=== PATIENT | male | born 2000 | race Caucasian/White ===

== ENCOUNTER 2019-04-28 01:49 | Emergency (ER) | payer OTHER, SELFPAY ==
[~2019-04-28] VITALS: Ht 188 cm; Wt 85.0 kg
[2019-04-28] MEDS ORDERED: MORPHINE 10 MG/ML 1ML VIAL (J2270) As Ordered ONE (02:27)
[2019-04-28] MEDS ORDERED: AMPICILLIN SOD/SULBACTAM SOD 3 GM in D5W MINI-BAG PLUS 100 ML IV ONE (02:30)
[2019-04-28] MEDS ORDERED: MORPHINE 10 MG/ML 1ML VIAL (J2270) IV ONE (02:30)
[2019-04-28 02:37] LABS: BASO # 0.1 10^3/uL (0.0-0.2); BASO % 0.5 % (0.0-1.0); EOS % 0.1 % (0.0-3.0); HEMATOCRIT 41.3 % (42.0-52.0); HEMOGLOBIN 13.9 g/dl (13.5-17.5); LYMPH # 1.5 10^3/uL (1.5-6.5); LYMPH % 14.8 % (24.0-44.0); MEAN CORPUSCULAR HEMOGLOBIN 27.6 pg (27.0-33.0); MEAN CORPUSCULAR HGB CONC 33.7 g/dl (32.0-36.5); MEAN CORPUSCULAR VOLUME 81.9 fl (80.0-96.0); MONO # 0.7 10^3/uL (0.0-0.8); MONO % 7.4 % (0.0-5.0); NEUTROPHILS # 7.6 10^3/uL (1.8-7.7); NEUTROPHILS % 76.6 % (36.0-66.0); PLATELET COUNT, AUTOMATED 199 10^3/uL (150-450); RED BLOOD COUNT 5.04 10^6/uL (4.30-6.10); WHITE BLOOD COUNT 9.9 10^3/uL (4.0-10.0)
[2019-04-28 02:57] LABS: BLOOD UREA NITROGEN 14 MG/DL (7-18); CALCIUM LEVEL 8.6 MG/DL (8.5-10.1); CARBON DIOXIDE LEVEL 25 MEQ/L (21-32); CHLORIDE LEVEL 108 MEQ/L (98-107); CREATININE FOR GFR 1.07 MG/DL (0.70-1.30); GLOMERULAR FILTRATION RATE > 60.0 (>60); GLUCOSE, FASTING 125 MG/DL (70-100); POTASSIUM SERUM 3.5 MEQ/L (3.5-5.1); SODIUM LEVEL 144 MEQ/L (136-145)
[2019-04-28 04:30] VITALS: BP 100/58
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
[2019-04-28] MEDS ORDERED: D5W/LR 1,000 ML IV ONE (05:15)
== END 2019-04-28 06:01 | disposition short-term general hospital (02) ==
LOC: M ED 01:49
DX: S02.66XB Fracture of symphysis of mandible, initial encounter for open fracture (principal); S02.642B Fracture of ramus of left mandible, initial encounter for open fracture; S02.632B Fracture of coronoid process of left mandible, initial encounter for open fracture; K08.419 Partial loss of teeth due to trauma, unspecified class; Z72.89 Other problems related to lifestyle; Y04.8XXA Assault by other bodily force, initial encounter; Y92.89 Other specified places as the place of occurrence of the external cause
CPT/HCPCS: 70450; 70486; 72125; 80048; 85025; 96374; 96375; 99284; J2270

== ENCOUNTER 2019-12-14 21:44 | Inpatient (IN) | payer OTHER, SELFPAY ==
[~2019-12-14] VITALS: Ht 188 cm; Wt 79.1 kg
[2019-12-14 23:13] LABS: HEMATOCRIT 44.6 % (42.0-52.0); HEMOGLOBIN 14.7 g/dl (13.5-17.5); MEAN CORPUSCULAR HEMOGLOBIN 27.9 pg (27.0-33.0); MEAN CORPUSCULAR VOLUME 84.8 fl (80.0-96.0); PLATELET COUNT, AUTOMATED 188 10^3/uL (150-450); RED BLOOD COUNT 5.26 10^6/uL (4.30-6.10); WHITE BLOOD COUNT 8.2 10^3/uL (4.0-10.0)
[2019-12-14 23:36] LABS: AMPHETAMINES LEVEL URINE NEGATIVE (NEGATIVE); BARBITURATES URINE NEGATIVE (NEGATIVE); BENZODIAZEPINES URINE NEGATIVE (NEGATIVE); CANNABINOIDS URINE NEGATIVE (NEGATIVE); COCAINE METABOLITE URINE NEGATIVE (NEGATIVE); METHADONE URINE NEGATIVE (NEGATIVE); OPIATES URINE NEGATIVE (NEGATIVE); PHENCYCLIDINE URINE NEGATIVE (NEGATIVE)
[2019-12-15 00:02] LABS: ACETAMINOPHEN LEVEL < 2.0 UG/ML (10.0-30.0); ALBUMIN 4.6 GM/DL (3.2-5.2); ALT/SGPT 16 U/L (12-78); BILIRUBIN,DIRECT 0.1 MG/DL (0.0-0.2); BILIRUBIN,TOTAL 0.4 MG/DL (0.2-1.0); BLOOD UREA NITROGEN 19 MG/DL (7-18); CALCIUM LEVEL 9.3 MG/DL (8.5-10.1); CARBON DIOXIDE LEVEL 29 MEQ/L (21-32); CHLORIDE LEVEL 103 MEQ/L (98-107); CREATININE FOR GFR 1.08 MG/DL (0.70-1.30); ETHYL ALCOHOL (ETHANOL) < 0.003 % (0.000-0.010); GLOMERULAR FILTRATION RATE > 60.0 (>60); GLUCOSE, FASTING 89 MG/DL (70-100); POTASSIUM SERUM 3.6 MEQ/L (3.5-5.1); SALICYLATE LEVEL < 1.7 MG/DL (5.0-30.0); SODIUM LEVEL 139 MEQ/L (136-145); TOTAL PROTEIN 7.9 GM/DL (6.4-8.2)
[2019-12-15] MEDS ORDERED: ACETAMINOPHEN TAB 650MG DOSE (2X325MG) PO PRN (00:45)
[2019-12-15] MEDS ORDERED: MAALOX 30 ML SUSP *UDC PO PRN (00:45)
[2019-12-15] MEDS ORDERED: MOM 30ML SUSPENSION UDC PO PRN (00:45)
[2019-12-15 01:42] VITALS: BP 134/78
[2019-12-15] MEDS: traZODone 50 MG TAB PO PRN ×2 (01:49→20:11)
[2019-12-15] MEDS: LORazepam 1 MG TAB PO PRN ×2 (01:49→09:03)
[2019-12-15 06:34] VITALS: BP 144/78
--- NOTE | 2019-12-15 16:01 | HPEPDOC ---
General Date of Admission Dec 15, 2019 at 00:40 Date of Service: Dec 15, 2019 Chief Complaint The patient is a 19-year-old male admitted with a reason for visit of Unspecified Depressive Disorder. 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 I am seeing the patient for medical history and physical. Complains of feeling tired and non interest in things. Home Medications No Active Prescriptions or Reported Meds Allergies Coded Allergies: No Known Allergies (Unverified , 04/28/19) Past Medical History Medical History depression Mandible fracture Surgical History left thumb surgery tonsillectomy Family History Significant Family History: No pertinent family hx discussed with the patient Social History * Smoker: current smoker Alcohol: occationally Drugs: denies A-FIB/CHADSVASC A-FIB History Current/History of A-Fib/PAF?: No Review of Systems Constitutional: Denies: Chills, Fever, Night Sweats Eyes: Denies: Pain, Vision change ENT: Denies: Head Aches, Ear Pain, Dysphagia Skin: Denies: Rash, Lesions, Breakdown Pulmonary: Denies: Dyspnea, Cough Cardiovascular: Denies: Chest Pain, Palpitations, Orthopnea, Paroxysmal Noc. Dyspnea, Lt Headedness Gastrointestinal: Denies: Nausea, Vomiting, Abdominal Pain, Diarrhea Genitourinary: Denies: Dysuria, Frequency, Incontinence, Retention Hematologic: Denies: Bruising, Bleeding Excessively Musculoskeletal: Denies: Neck Pain, Back Pain, Joint Pain, Muscle Pain, Spasms Neurological: Denies: Weakness, Numbness, Change in speech, Confusion Physical Examination General Exam: Positive: Alert, Cooperative, No Acute Distress Eye Exam: Positive: PERRLA, Conjunctiva & lids normal, EOMI; Negative: Sclera icteric ENT Exam: Positive: Atraumatic, Mucous membr. moist/pink, Pharynx Normal Neck Exam: Positive: Supple; Negative: JVD, thyromegaly Chest Exam: Positive: Clear to auscultation, Normal air movement Heart Exam: Positive: Rate Normal, Regular Rhythm, Normal S1, Normal S2; Negative: Murmurs, Rubs Abdomen Exam: Positive: Normal bowel sounds, Soft; Negative: Tenderness, Hepatospenomegaly Extremity Exam: Positive: Normal pulses; Negative: Clubbing, Cyanosis, Edema Skin Exam: Positive: Nl turgor and temperature; Negative: Breakdown, Lesion Neuro Exam: Positive: Normal Gait, Normal Speech, Cranial Nerves 3-12 NL, Reflexes 2+ Vital Signs Vital Signs Date Time Temp Pulse Resp B/P (MAP) Pulse Ox O2 Delivery O2 Flow Rate FiO2 12/15/19 06:34 98.9 87 16 144/78 (100) 12/15/19 01:42 97 Room Air Laboratory Data Labs 24H Laboratory Tests 2 12/14/19 22:57: Urine Opiates Screen NEGATIVE, Urine Methadone Screen NEGATIVE, Urine Barbiturates Screen NEGATIVE, Urine Phencyclidine Screen NEGATIVE, Urine Amphetamines Screen NEGATIVE, Urine Benzodiazepines Screen NEGATIVE, Urine Cocaine Metabolite Screen NEGATIVE, Urine Cannabinoids Screen NEGATIVE 12/14/19 23:03: Nucleated Red Blood Cells % (auto) 0.0, Anion Gap 7L, Glomerular Filtration Rate > 60.0, Calcium Level 9.3, Total Bilirubin 0.4, Direct Bilirubin 0.1, Aspartate Amino Transf (AST/SGOT) 18, Alanine Aminotransferase (ALT/SGPT) 16, Alkaline Phosphatase 99, Total Protein 7.9, Albumin 4.6, Albumin/Globulin Ratio 1.39, Thyroid Stimulating Hormone (TSH) 5.540H, Salicylates Level < 1.7L, Acet aminophen Level < 2.0L, Ethyl Alcohol Level < 0.003 CBC/BMP Laboratory Tests 12/14/19 23:03 Assessment/Plan 19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 I am seeing the patient for medical history and physical . Psychiatric issues as per phychiatry Elevated TSH as long as tsh remains below 10 it is subclinical hypothyroidism and does not treatment. Plan / VTE VTE Prophylaxis Ordered?: No KRIS OCHOA MD Dec 15, 2019 16:01
[2019-12-15] MEDS: NICOTINE 21MG/24HR 1 EA TRANSDERMAL TD SCH (16:06)
[2019-12-15 16:33] VITALS: BP 118/70
--- NOTE | 2019-12-15 22:15 | MHHPE ---
DATE OF ADMISSION: 12/15/2019 CHIEF COMPLAINT: Feels depressed. SUBJECTIVE: He is 19 years old. He is single. He is active duty. He has a girlfriend, who has been quite ill. The patient is established at [facility] the last couple of months or so, and is apparently treated for depression. He says that he has been depressed for a while, but is somewhat vague on this, several weeks, possibly months. Says sleep is broken, concentration is impacted. He feels more tired. He has had suicidal thoughts. Says that he has a tendency to hurt himself in order to feel pain as well. He says that it is preferable to the difficult emotions that he experiences. He says that a couple of weeks ago he had been stabbing himself with a pencil on the left arm, left hand as well. He says that he wanted to draw blood as well, and then had some remorse about it. He says his mood has worsened, particularly as his girlfriend has not been well, he says that she has an inoperable brain tumor and this was recently found out and she is due to undergo chemotherapy. He had come in as he had tried again stabbing himself, says concerned such emotions may worsen. No history consistent with hypomania nor jairo. No obsessions or compulsions. No history consistent with psychosis. No posttraumatic stress disorder (PTSD). PAST PSYCHIATRIC HISTORY: As indicated above. He is seen at [facility]. He says that he has made suicide attempts by stabbing himself, attempting to a couple of weeks ago. MEDICAL HISTORY: No acute medical problems. SUBSTANCE ABUSE HISTORY: Denies any. SOCIAL HISTORY: Family is from out of state, says had a good childhood. He is close to them. They live in [place]. He is in contact with his mother. He graduated high school. Denies any history of abuse when growing up. MENTAL STATUS EXAMINATION: Neat, cooperative, though a bit guarded. There is no agitation. No psychomotor retardation. He is coherent. Affect is restricted. He has suicidal thoughts, currently no firm plan. No homicidal ideas or intents. No evidence of any psychosis. Intellect is average. Cognition is grossly intact. Judgment and insight are fair. VITAL SIGNS: Blood pressure 118/70, pulse 95, temperature 98.6. ASSESSMENT: 1. Unspecified depressive disorder. 2. Rule out major depressive disorder. 3. Girlfriend's illness. 4. Limited social supports. He is depressed, clinically significantly so the last several weeks, possibly longer, several stressors, including his girlfriend's illness. PLAN: He is admitted to the inpatient psychiatry unit and placed on relevant precautions. We will look at obtaining collateral information. He will receive a medicine consultation if indicated. Meanwhile, after discussion of the risks, benefits, drawbacks, and alternatives, which he understands, he will be started on Prozac at 10 mg daily, to be titrated upwards as indicated. He is to be encouraged to participate in activities on the unit. He will be discharged with followup once he is stable. The assessment took 30 minutes.
[2019-12-16 06:28] VITALS: BP 115/72
[2019-12-16] MEDS: NICOTINE 21MG/24HR 1 EA TRANSDERMAL TD SCH (09:00)
[2019-12-16] MEDS: LORazepam 1 MG TAB PO PRN ×2 (09:24→17:00)
[2019-12-16] MEDS: FLUoxetine 10 MG CAP PO SCH (11:40)
[2019-12-16 16:52] VITALS: BP 119/58
[2019-12-16] MEDS: traZODone 50 MG TAB PO PRN (20:40)
[2019-12-17 06:32] VITALS: BP 127/76
[2019-12-17] MEDS: LORazepam 1 MG TAB PO PRN (08:31)
[2019-12-17] MEDS: FLUoxetine 10 MG CAP PO SCH (08:31)
--- NOTE | 2019-12-17 09:01 | MHIPNPDOC ---
[facility] Progress Note Progress Note Inpatient Progress Note Dax Pham MRN: N/A Date of : N/A Date of Service: 12/17/2019 History of Present Illness The patient a 19-year-old man with a history of some mild depression in the setting of multiple stressors, such as girlfriend who is currently fighting cancers. Presents suicidal and depressed. Interval History Psychiatric symptoms today: The patient is met with the business planner. He reports that felt the Prozac might be helpful for him, but notes too that he finds it difficult to cope with the various stressors. Affective: The patient still reports low mood, loss of interest, difficulty concentrating. Psychotic: The patient denies any . Anxiety: The patient still reports excessive worry. Misc: sleeping/eating is okay. Group Attendance: regular attendance . Medication Side effects: See ROS below Behavioral problems/significant events overnight: To none reported. Staff Report: The patient appears quite depressed by staff report, but still amenable and engaged. Review Of Systems General: Denies fever or appetite changes Cardiovascular: Denies Chest pain or palpations GI: Denies Nausea, vomiting, or bowel changes Respiratory: Denies shortness of breath or cough Neuro: Denies dizziness, tremors Derm: Denies any rashes or pruritus : Denies any dysuria or urinary problems MSK: Denies any muscle tightness or stiffness HEENT: Denies any vision changes or headaches Psychotherapy None on this visit. Vital Signs Reviewed. Mental Status Examination General: Well dressed with good hygiene Speech: Spontaneous and fluid Thought processes: Linear and logical MSK: Smooth and coordinated gait, no signs of tremors or involuntary orofacial movements Thought content: Hopelessness. Abstract reasoning, and computation: Intact Description of associations: Intact Description of abnormal or psychotic thoughts: Denies any suicidal or homicidal ideation. Denies any auditory or visual hallucinations. Does not appear to be responding to internal stimuli. Does not appear to be endorsing any bizarre or paranoid ideation. Judgment: fair Insight: fair Orientation: Alert and orientated 3 Cognition: Grossly normal Recent and remote memory: Intact Attention span and concentration: Intact Fund of knowledge: Adequate Mood: "Bad" Affect: Dysthymic with a constricted range. Diagnoses Unspecified depressive disorder. Assessment and Plan Unspecified depressive disorder: Increase Prozac to 20 mg daily. Disposition Patient will need a continued admission to treat his severe depression. He does report at times some intermittent SI, but none at this time. We will convert a voluntary at this time in order to help culture better therapeutical alignment. Time Spent 15 minutes. Tuesday Vital Signs Vital Signs Date Time Temp Pulse Resp B/P (MAP) Pulse Ox O2 Delivery O2 Flow Rate FiO2 12/17/19 06:32 98.0 80 16 127/76 (93) 12/15/19 01:42 97 Room Air Current Medications Current Medications Medications (Trade) Dose Ordered Sig/Dakota Route PRN Reason Start Time Stop Time Status Last Admin Dose Admin Acetaminophen (Tylenol Tab) 650 mg Q6HP PRN PO HEADACHE or DISCOMFORT 12/15/19 00:45 Al Hydrox/Mg Hydrox/Simethicone (Mylanta) 30 ml Q4HP PRN PO HEARTBURN/INDIGESTION 12/15/19 00:45 Fluoxetine HCl (PROzac) 10 mg DAILY PO 12/16/19 09:00 12/17/19 08:31 Home Med (Med Rec Complete!) ASDIRECTED XX 12/15/19 01:00 12/15/19 01:03 DC Lorazepam (Ativan) 1 mg Q4HP PRN PO ANXIETY/AGITATION 12/15/19 00:45 12/17/19 08:31 Magnesium Hydroxide (Milk Of Magnesia) 30 ml DAILYPRN PRN PO CONSTIPATION 12/15/19 00:45 Nicotine (Nicoderm Cq 21mg) 1 patch DAILY TD 12/15/19 09:00 12/16/19 10:56 DC 12/15/19 16:06 Trazodone HCl (Desyrel) 50 mg QHSP PRN PO INSOMNIA 12/15/19 00:45 12/16/19 20:40 Allergies Coded Allergies: No Known Allergies (Unverified , 04/28/19) ADILSON EASON DO Dec 17, 2019 09:01
[2019-12-17] MEDS ORDERED: NICOTINE POLACRILEX 2 MG GUM PO ONE (12:00)
[2019-12-17 14:00] VITALS: BP 128/58
[2019-12-17] MEDS: NICOTINE POLACRILEX 2 MG GUM PO PRN ×2 (18:10→20:46)
--- NOTE | 2019-12-17 19:20 | MHIPN ---
DATE: 12/16/2019 VITAL SIGNS: Blood pressure 115/72, pulse 84, temperature 98.5. CHIEF COMPLAINT: Says has been vomiting. SUBJECTIVE: He is seen for followup. Indicates had been doing okay until yesterday evening when he started vomiting. He says that he has thrown up on a few occasions, he is not quite sure why. He says sleep was okay though broken. He has had breakfast this morning. MENTAL STATUS EXAMINATION: He is neat. He is cooperative. Appears a bit tired. There is no agitation. No psychomotor retardation. He is coherent. Affect is restricted but reactive. Vague on suicidal thoughts at present. No homicidal ideas or intents. No evidence of any psychosis. Cognition is grossly intact. Judgment is fair, as is insight. ASSESSMENT: 1. Unspecified depressive disorder. 2. Rule out major depressive disorder. It is possible that he may have vomited because of nicotine patch. He was given a 21 mg patch on admission, apparently uses one pack of cigarettes a week. We will discontinue the patch. He will be started on Prozac today at 10 mg daily. PLAN: Given that he has vomited on a few occasions, it is possible starting the Prozac may lead to further nausea, but that will be monitored. He should be encouraged to participate in activities in the unit. He will be seen by the inpatient psychiatrist tomorrow and further recommendations will be made. We met for 15 minutes.
[2019-12-17] MEDS: traZODone 50 MG TAB PO PRN (20:46)
[2019-12-18 06:13] VITALS: BP 125/77
[2019-12-18] MEDS: LORazepam 1 MG TAB PO PRN (08:28)
[2019-12-18] MEDS: FLUoxetine 20 MG CAP PO SCH (08:28)
[2019-12-18] MEDS: NICOTINE POLACRILEX 2 MG GUM PO PRN ×3 (08:29→16:11)
--- NOTE | 2019-12-18 10:43 | MHIPNPDOC ---
[facility] Progress Note Progress Note Inpatient Progress Note Dax Pham MRN: N/A Date of : N/A Date of Service: 12/18/2019 History of Present Illness The patient a 19-year-old man with a history of some mild depression in the setting of multiple stressors, such as girlfriend who is currently fighting cancers. Presents suicidal and depressed. Interval History Psychiatric symptoms today: The patient is met with. He reports that he is still having difficulties with depression, feels that the medication is somewhat helpful but reports various stressors. Affective: The patient still reports low mood, loss of interest, difficulty concentrating. Psychotic: The patient denies any . Anxiety: The patient reports excessive worry, using quite a bit of PRN medication. Misc: sleeping/eating is okay. Group Attendance: regular attendance . Medication Side effects: See ROS below Behavioral problems/significant events overnight: None reported. Staff Report: The patient appears quite depressed by staff report, but still amenable and engaged. Review Of Systems General: Denies fever or appetite changes Cardiovascular: Denies Chest pain or palpations GI: Denies Nausea, vomiting, or bowel changes Respiratory: Denies shortness of breath or cough Neuro: Denies dizziness, tremors Derm: Denies any rashes or pruritus : Denies any dysuria or urinary problems MSK: Denies any muscle tightness or stiffness HEENT: Denies any vision changes or headaches Psychotherapy None on this visit. Vital Signs Reviewed. Mental Status Examination General: Well dressed with good hygiene Speech: Spontaneous and fluid Thought processes: Linear and logical MSK: Smooth and coordinated gait, no signs of tremors or involuntary orofacial movements Thought content: Hopelessness. Abstract reasoning, and computation: Intact Description of associations: Intact Description of abnormal or psychotic thoughts: Denies any suicidal or homicidal ideation. Denies any auditory or visual hallucinations. Does not appear to be responding to internal stimuli. Does not appear to be endorsing any bizarre or paranoid ideation. Judgment: fair Insight: fair Orientation: Alert and orientated 3 Cognition: Grossly normal Recent and remote memory: Intact Attention span and concentration: Intact Fund of knowledge: Adequate Mood: "Okay" Affect: Dysthymic with a constricted range. Diagnoses Unspecified depressive disorder. Assessment and Plan Unspecified depressive disorder: to Continue Prozac to 20 mg daily, discontinue Ativan. Disposition Patient will need a continued admission to treat his severe depression. He does report at times some intermittent SI, but none at this time. We will convert a voluntary at this time in order to help culture better therapeutical alignment. Time Spent 15 minutes. Tuesday Vital Signs Vital Signs Date Time Temp Pulse Resp B/P (MAP) Pulse Ox O2 Delivery O2 Flow Rate FiO2 12/18/19 06:13 96.9 75 16 125/77 (93) 12/15/19 01:42 97 Room Air Current Medications Current Medications Medications (Trade) Dose Ordered Sig/Dakota Route PRN Reason Start Time Stop Time Status Last Admin Dose Admin Acetaminophen (Tylenol Tab) 650 mg Q6HP PRN PO HEADACHE or DISCOMFORT 12/15/19 00:45 Al Hydrox/Mg Hydrox/Simethicone (Mylanta) 30 ml Q4HP PRN PO HEARTBURN/INDIGESTION 12/15/19 00:45 Fluoxetine HCl (PROzac) 10 mg DAILY PO 12/16/19 09:00 12/17/19 11:51 DC 12/17/19 08:31 Fluoxetine HCl (PROzac) 20 mg DAILY PO 12/18/19 09:00 12/18/19 08:28 Home Med (Med Rec Complete!) ASDIRECTED XX 12/15/19 01:00 12/15/19 01:03 DC Lorazepam (Ativan) 1 mg Q4HP PRN PO ANXIETY/AGITATION 12/15/19 00:45 12/18/19 10:38 DC 12/18/19 08:28 Magnesium Hydroxide (Milk Of Magnesia) 30 ml DAILYPRN PRN PO CONSTIPATION 12/15/19 00:45 Nicotine (Nicoderm Cq 21mg) 1 patch DAILY TD 12/15/19 09:00 12/16/19 10:56 DC 12/15/19 16:06 Nicotine (Nicorette) 4 mg Q2HP PRN PO NICOTINE WITHDRAWAL 12/17/19 12:00 12/18/19 08:29 Trazodone HCl (Desyrel) 50 mg QHSP PRN PO INSOMNIA 12/15/19 00:45 12/17/19 20:46 Allergies Coded Allergies: No Known Allergies (Unverified , 04/28/19) ADILSON EASON DO Dec 18, 2019 10:43
[2019-12-18 17:44] VITALS: BP 118/68
[2019-12-18] MEDS: RAMELTEON 8 MG TAB (ROZEREM) PO SCH (21:31)
[2019-12-18] MEDS: traZODone 50 MG TAB PO PRN (21:31)
[2019-12-18] MEDS ORDERED: hydrOXYzine 25 MG TAB PO PRN (22:15)
[2019-12-18] MEDS ORDERED: hydrOXYzine 25 MG TAB PO ONE (23:00)
[2019-12-19 06:13] VITALS: BP 117/72
[2019-12-19] MEDS: NICOTINE POLACRILEX 2 MG GUM PO PRN ×2 (09:31→16:59)
[2019-12-19] MEDS: FLUoxetine 20 MG CAP PO SCH (09:31)
--- NOTE | 2019-12-19 12:47 | MHIPNPDOC ---
[facility] Progress Note Progress Note Inpatient Progress Note Dax Pham MRN: N/A Date of : N/A Date of Service: 12/19/2019 History of Present Illness The patient a 19-year-old man with a history of some mild depression in the setting of multiple stressors, such as girlfriend who is currently fighting cancers. Presents suicidal and depressed. Interval History Psychiatric symptoms today: The patient is met with. He reports he is still having difficulties with depression, feels medication is helpful, although not entirely so. Affective: The patient still reports low mood, loss of interest, difficulty concentrating. Psychotic: The patient denies any . Anxiety: The patient reports excessive worry, using quite a bit of PRN medication. Misc: sleeping/eating is okay. Group Attendance: regular attendance . Medication Side effects: See ROS below Behavioral problems/significant events overnight: None reported. Staff Report: The patient appears quite depressed by staff report, but still amenable and engaged. Review Of Systems General: Denies fever or appetite changes Cardiovascular: Denies Chest pain or palpations GI: Denies Nausea, vomiting, or bowel changes Respiratory: Denies shortness of breath or cough Neuro: Denies dizziness, tremors Derm: Denies any rashes or pruritus : Denies any dysuria or urinary problems MSK: Denies any muscle tightness or stiffness HEENT: Denies any vision changes or headaches Psychotherapy None on this visit. Vital Signs Reviewed. Mental Status Examination General: Well dressed with good hygiene Speech: Spontaneous and fluid Thought processes: Linear and logical MSK: Smooth and coordinated gait, no signs of tremors or involuntary orofacial movements Thought content: Hopelessness. Abstract reasoning, and computation: Intact Description of associations: Intact Description of abnormal or psychotic thoughts: Denies any suicidal or homicidal ideation. Denies any auditory or visual hallucinations. Does not appear to be responding to internal stimuli. Does not appear to be endorsing any bizarre or paranoid ideation. Judgment: fair Insight: fair Orientation: Alert and orientated 3 Cognition: Grossly normal Recent and remote memory: Intact Attention span and concentration: Intact Fund of knowledge: Adequate Mood: "Okay" Affect: Dysthymic with a constricted range. Diagnoses Major depressive disorder, moderate to severe, recurrent. Assessment and Plan Major depressive disorder: Continue to increase Prozac to 30 mg daily. Add hydroxyzine for anxiety 50 mg as needed every 4 hours. Start Wellbutrin 150 mg extended release. Discussed risks, benefits, potential side effects as well as alternatives Disposition The patient will need a further inpatient admission for titration of medications as his current medication regimen is not controlling his symptoms sufficiently well, to ensure a safe and secure discharge. Time Spent 15 minutes. Tuesday Vital Signs Vital Signs Date Time Temp Pulse Resp B/P (MAP) Pulse Ox O2 Delivery O2 Flow Rate FiO2 12/19/19 06:13 96.8 78 16 117/72 (87) 12/15/19 01:42 97 Room Air Current Medications Current Medications Medications (Trade) Dose Ordered Sig/Dakota Route PRN Reason Start Time Stop Time Status Last Admin Dose Admin Acetaminophen (Tylenol Tab) 650 mg Q6HP PRN PO HEADACHE or DISCOMFORT 12/15/19 00:45 Al Hydrox/Mg Hydrox/Simethicone (Mylanta) 30 ml Q4HP PRN PO HEARTBURN/INDIGESTION 12/15/19 00:45 Fluoxetine HCl (PROzac) 10 mg DAILY PO 12/16/19 09:00 12/17/19 11:51 DC 12/17/19 08:31 Fluoxetine HCl (PROzac) 20 mg DAILY PO 12/18/19 09:00 12/19/19 09:31 Home Med (Med Rec Complete!) ASDIRECTED XX 12/15/19 01:00 12/15/19 01:03 DC Hydroxyzine HCl (Atarax) 25 mg Q6HP PRN PO ANXIETY 12/18/19 22:15 12/19/19 09:31 Lorazepam (Ativan) 1 mg Q4HP PRN PO ANXIETY/AGITATION 12/15/19 00:45 12/18/19 10:38 DC 12/18/19 08:28 Magnesium Hydroxide (Milk Of Magnesia) 30 ml DAILYPRN PRN PO CONSTIPATION 12/15/19 00:45 Nicotine (Nicoderm Cq 21mg) 1 patch DAILY TD 12/15/19 09:00 12/16/19 10:56 DC 12/15/19 16:06 Nicotine (Nicorette) 4 mg Q2HP PRN PO NICOTINE WITHDRAWAL 12/17/19 12:00 12/19/19 09:31 Ramelteon (Rozerem) 8 mg QHS PO 12/18/19 21:00 12/18/19 21:31 Trazodone HCl (Desyrel) 50 mg QHSP PRN PO INSOMNIA 12/15/19 00:45 12/18/19 21:31 Allergies Coded Allergies: No Known Allergies (Unverified , 04/28/19) ADILSON EASON DO Dec 19, 2019 12:47
[2019-12-19 16:00] VITALS: BP 98/55
[2019-12-19] MEDS: hydrOXYzine 25 MG TAB PO PRN (20:28)
[2019-12-19] MEDS: RAMELTEON 8 MG TAB (ROZEREM) PO SCH (20:28)
[2019-12-19] MEDS: traZODone 50 MG TAB PO PRN (20:29)
[2019-12-20 06:27] VITALS: BP 111/60
[2019-12-20] MEDS: FLUoxetine 10 MG CAP PO SCH (08:49)
[2019-12-20] MEDS: hydrOXYzine 25 MG TAB PO PRN ×2 (08:49→19:12)
[2019-12-20] MEDS: NICOTINE POLACRILEX 2 MG GUM PO PRN ×3 (08:51→19:13)
[2019-12-20] MEDS ORDERED: buPROPion **XL** TABLET 150MG (WELLBUTRIN XL) PO SCH (09:00)
--- NOTE | 2019-12-20 10:43 | MHIPNPDOC ---
[facility] Progress Note Progress Note Inpatient Progress Note Dax Pham MRN: N/A Date of : N/A Date of Service: 12/20/2019 History of Present Illness The patient a 19-year-old man with a history of some mild depression in the setting of multiple stressors, such as girlfriend who is currently fighting cancers. Presents suicidal and depressed. Interval History Psychiatric symptoms today: The patient met with. He had been initially napping but reports that he is feeling somewhat better. He feels he had met another patient on the unit that was quite supportive and he is feeling ready for di scharge to home, has plans for the future. Affective: The patient reports improvement in his mood. He has no loss of interest today. His concentration problems have resolved. Psychotic: The patient denies any . Anxiety: The patient ports the hydroxyzine is quite helpful and his anxiety feels much better managed. Misc: sleeping/eating is okay. Group Attendance: regular attendance . Medication Side effects: See ROS below Behavioral problems/significant events overnight: None reported. Staff Report: The patient appears quite depressed by staff report, but still amenable and engaged. Review Of Systems General: Denies fever or appetite changes Cardiovascular: Denies Chest pain or palpations GI: Denies Nausea, vomiting, or bowel changes Respiratory: Denies shortness of breath or cough Neuro: Denies dizziness, tremors Derm: Denies any rashes or pruritus : Denies any dysuria or urinary problems MSK: Denies any muscle tightness or stiffness HEENT: Denies any vision changes or headaches Psychotherapy None on this visit. Vital Signs Reviewed. Mental Status Examination General: Well dressed with good hygiene Speech: Spontaneous and fluid Thought processes: Linear and logical MSK: Smooth and coordinated gait, no signs of tremors or involuntary orofacial movements Thought content: Future orientated Abstract reasoning, and computation: Intact Description of associations: Intact Description of abnormal or psychotic thoughts: Denies any suicidal or homicidal ideation. Denies any auditory or visual hallucinations. Does not appear to be responding to internal stimuli. Does not appear to be endorsing any bizarre or paranoid ideation. Judgment: fair Insight: fair Orientation: Alert and orientated 3 Cognition: Grossly normal Recent and remote memory: Intact Attention span and concentration: Intact Fund of knowledge: Adequate Mood: "okay" Affect: Euthymic with a full range Diagnoses Major depressive disorder, moderate to severe, recurrent. Assessment and Plan Major depressive disorder: Continue Prozac 30 mg daily. Increase Wellbutrin to 300 mg extended release tomorrow. Continue hydroxyzine. Disposition Discharge tomorrow. Time Spent 15 minutes. Vital Signs Vital Signs Date Time Temp Pulse Resp B/P (MAP) Pulse Ox O2 Delivery O2 Flow Rate FiO2 12/20/19 06:27 97.4 72 18 111/60 (77) 12/15/19 01:42 97 Room Air Current Medications Current Medications Medications (Trade) Dose Ordered Sig/Dakota Route PRN Reason Start Time Stop Time Status Last Admin Dose Admin Acetaminophen (Tylenol Tab) 650 mg Q6HP PRN PO HEADACHE or DISCOMFORT 12/15/19 00:45 Al Hydrox/Mg Hydrox/Simethicone (Mylanta) 30 ml Q4HP PRN PO HEARTBURN/INDIGESTION 12/15/19 00:45 Bupropion HCl (Wellbutrin Xl) 150 mg DAILY PO 12/20/19 09:00 12/20/19 08:49 Fluoxetine HCl (PROzac) 10 mg DAILY PO 12/16/19 09:00 12/17/19 11:51 DC 12/17/19 08:31 Fluoxetine HCl (PROzac) 20 mg DAILY PO 12/18/19 09:00 12/19/19 16:33 DC 12/19/19 09:31 Fluoxetine HCl (PROzac) 30 mg DAILY PO 12/20/19 09:00 12/20/19 08:49 Home Med (Med Rec Complete!) ASDIRECTED XX 12/15/19 01:00 12/15/19 01:03 DC Hydroxyzine HCl (Atarax) 25 mg Q4HP PRN PO ANXIETY/AGITATION 12/19/19 16:45 12/20/19 08:49 Hydroxyzine HCl (Atarax) 25 mg Q6HP PRN PO ANXIETY 12/18/19 22:15 12/19/19 16:37 DC 12/19/19 09:31 Lorazepam (Ativan) 1 mg Q4HP PRN PO ANXIETY/AGITATION 12/15/19 00:45 12/18/19 10:38 DC 12/18/19 08:28 Magnesium Hydroxide (Milk Of Magnesia) 30 ml DAILYPRN PRN PO CONSTIPATION 12/15/19 00:45 Nicotine (Nicoderm Cq 21mg) 1 patch DAILY TD 12/15/19 09:00 12/16/19 10:56 DC 12/15/19 16:06 Nicotine (Nicorette) 4 mg Q2HP PRN PO NICOTINE WITHDRAWAL 12/17/19 12:00 12/20/19 08:51 Ramelteon (Rozerem) 8 mg QHS PO 12/18/19 21:00 12/19/19 20:28 Trazodone HCl (Desyrel) 50 mg QHSP PRN PO INSOMNIA 12/15/19 00:45 12/19/19 20:29 Allergies Coded Allergies: No Known Allergies (Unverified , 04/28/19) ADILSON EASON DO Dec 20, 2019 10:43
[2019-12-20 15:43] VITALS: BP 108/52
[2019-12-20] MEDS: RAMELTEON 8 MG TAB (ROZEREM) PO SCH (20:29)
[2019-12-20] MEDS: traZODone 50 MG TAB PO PRN (20:29)
[2019-12-21 06:08] VITALS: BP 141/87
[2019-12-21] MEDS: hydrOXYzine 25 MG TAB PO PRN ×2 (07:57→12:19)
[2019-12-21] MEDS: FLUoxetine 10 MG CAP PO SCH (07:57)
[2019-12-21] MEDS: NICOTINE POLACRILEX 2 MG GUM PO PRN ×2 (07:59→11:02)
[2019-12-21] MEDS ORDERED: buPROPion **XL** TABLET 150MG (WELLBUTRIN XL) PO SCH (09:00)
[2019-12-21] MEDS ORDERED: NICO2GUM PO (10:06)
[2019-12-21] MEDS ORDERED: FLUO10CA15 PO (10:06)
[2019-12-21] MEDS ORDERED: BUPR150T3 PO (10:06)
--- NOTE | 2019-12-21 10:09 | MHDSPDOC ---
[facility] Discharge Summary Discharge Summary DATE OF ADMISSION: Dec 15, 2019 at 00:40 DATE OF DISCHARGE: 12/21/19 Discharge Dax Pham MRN: N/A Date of : N/A Date of Service: 12/21/2019 Diagnoses Major depressive disorder, moderate to severe, recurrent. History of Present Illness The patient a 19-year-old man with a history of some mild depression in the setting of multiple stressors, such as girlfriend who is currently fighting cancers. Presents suicidal and depressed. Consultants Involved Hospitalist/PCP screening Treatment and Progress On The Unit Patient was admitted to inpatient mental health unit started on Prozac increased to a total of 30 mg daily augmented with Wellbutrin 150 mg daily. The patient did well on our unit. He attended all groups well, he had no behavioral problems. He was given hydroxyzine instead of Ativan for anxiety, which he did well. He worked too many of his emotional difficulties. He had no issues was changed to voluntary shortly after he presented to the unit. His suicidality resolved at the first several days of admission, subsequently the patient improved and then requested discharge. Discharge Assessment The patient 19-year-old with a history of depression in the setting of psy chosocial stressors, improves well with a combination of Prozac and Wellbutrin and a small dose of hydroxyzine for anxiety. Patient does well and on the day of discharge have been denying any suicidal and homicidal ideation for several days. Had a normal mental status exam, was on a voluntary admission and had good insight/judgment into the situation and thus my clinical judgment he did not meet involuntary criteria for extended admission. He declines voluntary extension at this time and will be discharged in good viktoria. Mental Status Examination General: Well dressed with good hygiene Speech: Spontaneous and fluid Thought processes: Linear and logical MSK: Smooth and coordinated gait, no signs of tremors or involuntary orofacial movements Thought content: Future orientated Abstract reasoning, and computation: Intact Description of associations: Intact Description of abnormal or psychotic thoughts: Denies any suicidal or homicidal ideation. Denies any auditory or visual hallucinations. Does not appear to be responding to internal stimuli. Does not appear to be endorsing any bizarre or paranoid ideation. Judgment: fair Insight: fair Orientation: Alert and orientated 3 Cognition: Grossly normal Recent and remote memory: Intact Attention span and concentration: Intact Fund of knowledge: Adequate Mood: "okay" Affect: Euthymic with a full range Follow Up The social work team worked during the predischarge meeting in order to evaluate for further issues of lethality address them fully before discharge. They worked on safety planning with the patient's family members in order to ensure that the patient will have a safe and effective discharge. Time Spent The amount of time spent in the coordination of care for this patient was approximately 40 minutes. Tuesday Vital Signs/I&Os Vital Signs Date Time Temp Pulse Resp B/P (MAP) Pulse Ox O2 Delivery O2 Flow Rate FiO2 12/21/19 06:08 97.5 59 16 141/87 (105) 12/15/19 01:42 97 Room Air Medications Scheduled Bupropion Hcl (Bupropion Xl) 150 Mg Tab.er.24h, 300 MG PO DAILY for mood for 7 Days, #7 Fluoxetine Hcl (Fluoxetine HCl) 10 Mg Capsule, 30 MG PO DAILY for mood for 7 Days, #21 Scheduled PRN Hydroxyzine HCl (Hydroxyzine HCl) 25 Mg Tablet, 25 MG PO Q4HP PRN for ANXIETY/AGITATION for 7 Days, #7 Nicotine Polacrilex (Nicotine Gum) 2 Mg Gum, 4 MG PO Q2HP PRN for NICOTINE WITHDRAWAL for 30 Days, #30 Allergies Coded Allergies: No Known Allergies (Unverified , 04/28/19) ADILSON EASON DO Dec 21, 2019 10:09
[2019-12-21] MEDS ORDERED: HYDR-3363 PO (11:01)
== END 2019-12-21 13:00 | disposition home or self-care (01) | DRG 885 ==
LOC: M ED 21:44 → M ED INP 12-15 00:40 → M PSY 12-15 01:10
PROVIDERS: ADMIT Psychiatry & Neurology Psychiatry; ATTEND Psychiatry & Neurology Addiction Medicine
DX: F33.2 Major depressive disorder, recurrent severe without psychotic features (principal); R45.851 Suicidal ideations; Z63.79 Other stressful life events affecting family and household; F17.210 Nicotine dependence, cigarettes, uncomplicated; E02 Subclinical iodine-deficiency hypothyroidism

== ENCOUNTER 2020-01-01 06:06 | Inpatient (IN) | payer OTHER ==
[~2020-01-01] VITALS: Ht 188 cm; Wt 85.0 kg
[~2020-01-01 06:06] MED LIST: BUPR150T3 PO; FLUO10CA15 PO; HYDR-3363 PO; NICO2GUM PO
[2020-01-01] MEDS ORDERED: HYDR-3363 PO (06:45)
[2020-01-01] MEDS ORDERED: WELLTAB38 PO (06:45)
[2020-01-01] MEDS ORDERED: FLUO10CA15 PO (06:45)
[2020-01-01] MEDS ORDERED: LIDOCAINE 1% MDV 20ML VIAL SC ONE (06:45)
[2020-01-01] MEDS ORDERED: NICO2GUM MT (06:45)
[2020-01-01 06:52] LABS: HEMATOCRIT 47.8 % (42.0-52.0); HEMOGLOBIN 15.9 g/dl (13.5-17.5); MEAN CORPUSCULAR HEMOGLOBIN 28.1 pg (27.0-33.0); MEAN CORPUSCULAR HGB CONC 33.3 g/dl (32.0-36.5); MEAN CORPUSCULAR VOLUME 84.5 fl (80.0-96.0); PLATELET COUNT, AUTOMATED 233 10^3/uL (150-450); RED BLOOD COUNT 5.66 10^6/uL (4.30-6.10); WHITE BLOOD COUNT 9.1 10^3/uL (4.0-10.0)
[2020-01-01 07:24] LABS: ALBUMIN 4.4 GM/DL (3.2-5.2); ALT/SGPT 17 U/L (12-78); BILIRUBIN,DIRECT 0.1 MG/DL (0.0-0.2); BILIRUBIN,TOTAL 0.3 MG/DL (0.2-1.0); BLOOD UREA NITROGEN 11 MG/DL (7-18); CALCIUM LEVEL 9.4 MG/DL (8.5-10.1); CARBON DIOXIDE LEVEL 30 MEQ/L (21-32); CHLORIDE LEVEL 106 MEQ/L (98-107); CREATININE FOR GFR 1.16 MG/DL (0.70-1.30); GLOMERULAR FILTRATION RATE > 60.0 (>60); GLUCOSE, FASTING 85 MG/DL (70-100); POTASSIUM SERUM 4.4 MEQ/L (3.5-5.1); SALICYLATE LEVEL < 1.7 MG/DL (5.0-30.0); SODIUM LEVEL 142 MEQ/L (136-145); TOTAL PROTEIN 7.7 GM/DL (6.4-8.2)
[2020-01-01 07:25] LABS: ACETAMINOPHEN LEVEL < 2.0 UG/ML (10.0-30.0); ETHYL ALCOHOL (ETHANOL) < 0.003 % (0.000-0.010)
[2020-01-01 07:26] LABS: AMPHETAMINES LEVEL URINE NEGATIVE (NEGATIVE); BARBITURATES URINE NEGATIVE (NEGATIVE); BENZODIAZEPINES URINE NEGATIVE (NEGATIVE); CANNABINOIDS URINE NEGATIVE (NEGATIVE); COCAINE METABOLITE URINE NEGATIVE (NEGATIVE); METHADONE URINE NEGATIVE (NEGATIVE); OPIATES URINE NEGATIVE (NEGATIVE); PHENCYCLIDINE URINE NEGATIVE (NEGATIVE)
[2020-01-01] MEDS ORDERED: CEPHALEXIN 500 MG CAP PO ONE (09:15)
[2020-01-01] MEDS ORDERED: IBUPROFEN 400 MG TAB PO PRN (12:30)
[2020-01-01] MEDS ORDERED: MAALOX 30 ML SUSP *UDC PO PRN (12:30)
[2020-01-01] MEDS ORDERED: diphenhydrAMINE 25 MG CAP PO PRN (12:30)
[2020-01-01] MEDS ORDERED: ACETAMINOPHEN TAB 650MG DOSE (2X325MG) PO PRN (12:30)
[2020-01-01] MEDS ORDERED: MOM 30ML SUSPENSION UDC PO PRN (12:30)
[2020-01-01 13:33] VITALS: BP 133/84
[2020-01-01] MEDS: OLANZapine ORAL DISINTEGRATING TAB 5MG PO PRN (14:25)
[2020-01-01] MEDS: NICOTINE POLACRILEX 2 MG GUM MT PRN (14:27)
[2020-01-01 15:40] VITALS: BP 147/74
[2020-01-01] MEDS: CEPHALEXIN 500 MG CAP PO SCH ×2 (16:00→21:20)
[2020-01-02 06:04] VITALS: BP 128/63
[2020-01-02] MEDS: CEPHALEXIN 500 MG CAP PO SCH ×3 (08:48→20:10)
[2020-01-02] MEDS ORDERED: FLUoxetine 10 MG CAP PO SCH (09:00)
[2020-01-02] MEDS ORDERED: buPROPion **XL** TABLET 150MG (WELLBUTRIN XL) PO SCH (09:00)
--- NOTE | 2020-01-02 11:17 | HPEPDOC ---
General Date of Admission Jan 01, 2020 at 12:29 Date of Service: Jan 02, 2020 Chief Complaint The patient is a 19-year-old male admitted with a reason for visit of Mdd Severe. Source: Patient Exam Limitations: No limitations Timing/Duration: Other (. 1 day) Severity: Other (not applicable) Associated Symptoms: Other (. 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 Left forearm with a knife because he wanted to feel something. Patient was thinking about suicide last night, so he was brought to [facility] for inpatient mental health unit admission. Patient denies any suicidal thought or any medical complaints including chest pain, shortness of breath, nausea, vomiting, diarrhea or abdominal pain Home Medications Scheduled Bupropion HCl (Wellbutrin Xl) 150 Mg Tab.er.24h, 300 MG PO DAILY, (Reported) Fluoxetine Hcl (Fluoxetine HCl) 10 Mg Capsule, 30 MG PO DAILY, (Reported) Scheduled PRN Hydroxyzine HCl (Hydroxyzine HCl) 25 Mg Tablet, 25 MG PO Q4H PRN for ANXIETY/AGITATION, (Reported) Nicotine Polacrilex (Nicotine Gum) 2 Mg Gum, 2 MG MT ASDIRECTED PRN for SMOKING CESSATION, (Reported) Allergies Coded Allergies: No Known Allergies (Unverified , 04/28/19) Past Medical History Medical History Depression, suicidal ideations, mandible fracture Surgical History , Left thumb surgery, tonsillectomy Social History * Smoker: Denies, current smoker Alcohol: Denies A-FIB/CHADSVASC A-FIB History Current/History of A-Fib/PAF?: No Review of Systems Constitutional: Denies: Chills, Fever, Malaise, Night Sweats, Weakness, Fatigue, Weight Loss, Lethargy, Other Eyes: Denies: Pain, Vision change, Conjunctivae inflammation, Eyelid inflammation, Redness, Other ENT: Denies: Head Aches, Ear Pain, Dysphagia, Sinus Congestion, Post Nasal Drip, Sore Throat, Epistaxis, Other Symptoms Skin: Denies: Rash, Lesions, Jaundice, Bruising, Itching, Dry, Breakdown, Nail Changes, Other Pulmonary: Denies: Dyspnea, Cough, Pleuritic Chest Pain, Other Symptoms Gastrointestinal: Denies: Nausea, Vomiting, Abdominal Pain, Diarrhea, Constipation, Melena, Hematochezia, Other Symptoms Genitourinary: Denies: Dysuria, Frequency, Incontinence, Hematuria, Retention, Other Symptoms Hematologic: Denies: Bruising, Bleeding Excessively, Petecchia, Purpura, Enlarged Lymph Nodes, Other Hematologic Endocrine: Denies: Polydipsia, Polyphagia, Polyuria, Heat Intolerance, Cold Intolerance, Other Endocrine Sx Musculoskeletal: Denies: Neck Pain, Back Pain, Shoulder Pain, Arm Pain, Hand Pain, Leg Pain, Foot Pain, Joint Pain, Muscle Pain, Spasms, Other Symptoms Neurological: Denies: Weakness, Numbness, Incoordination, Change in speech, Confusion, Seizures, Other Symptoms Psych: Denies: Mood Normal, Anxiety, Depression, Memory Issues, Thoughts of Self Harm, Anger, Thoughts of Harming Other, Other Psych Physical Examination General Exam: Positive: Alert, Cooperative Eye Exam: Positive: PERRLA, Conjunctiva & lids normal ENT Exam: Positive: Mucous membr. moist/pink Neck Exam: Positive: Supple Chest Exam: Positive: Clear to auscultation, Normal air movement Heart Exam: Positive: Rate Normal, Normal S1, Normal S2 Abdomen Exam: Positive: Normal bowel sounds Extremity Exam: Positive: Normal pulses Skin Exam: Positive: Other skin issue (multiple linear superficial lacerations on left arm and both thighs. There is a 1. Laceration on top of right thigh which has some discharge, bruising, but some of the lacerations have been sutured in the emergency room both thighs) Neuro Exam: Positive: Normal Gait, Cranial Nerves 3-12 NL, Reflexes 2+ Psych Exam: Positive: Mood NL, Oriented x 3 Vital Signs Vital Signs Date Time Temp Pulse Resp B/P (MAP) Pulse Ox O2 Delivery O2 Flow Rate FiO2 01/02/20 06:04 97.4 60 16 128/63 (84) 01/01/20 13:33 98 Room Air Problems (1) Suicidal ideation Status: Acute Problem Text: Patient admitted to inpatient mental health unit Individual and group therapy as per psych Pharmacology to intervention as per psychiatry (2) Multiple lacerations Status: Acute Problem Text: Multiple superficial lacerations with some him with sutures on left upper extremity, left forearm, bilateral anterior aspect of thighs one Laceration on top of right side has some yellowish discharge but does not seem infected at the present time, but will empirically start on by mouth Keflex to prevent any infection Patient would get his sutures removed after one week with his PCP or ED Plan / VTE VTE Prophylaxis Ordered?: No VTE Exclusion Mechanical Proph: Low Risk for VTE VTE Exclusion Pharmacological: At Low Risk for VTE PRASANTH ROSE MD Jan 02, 2020 11:17
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
[2020-01-02] MEDS: NICOTINE POLACRILEX 2 MG GUM MT PRN (13:46)
[2020-01-02] MEDS: hydrOXYzine 25 MG TAB PO PRN (13:46)
[2020-01-02] MEDS ORDERED: CEPHALEXIN 500 MG CAP PO SCH (15:45)
[2020-01-02 17:10] VITALS: BP 133/70
[2020-01-02] MEDS: OLANZapine ORAL DISINTEGRATING TAB 5MG PO PRN (21:22)
[2020-01-02] MEDS: traZODone 50 MG TAB PO PRN (21:22)
[2020-01-03 05:56] VITALS: BP 134/73
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
[2020-01-03] MEDS: CEPHALEXIN 500 MG CAP PO SCH ×3 (08:29→20:04)
[2020-01-03 16:30] VITALS: BP 116/64
[2020-01-03] MEDS: ARIPiprazole 10 MG TAB PO SCH (20:04)
[2020-01-04 06:18] VITALS: BP 123/82
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
[2020-01-04] MEDS: CEPHALEXIN 500 MG CAP PO SCH ×3 (09:32→21:09)
[2020-01-04] MEDS: NICOTINE POLACRILEX 2 MG GUM MT PRN (09:32)
[2020-01-04] MEDS: OLANZapine ORAL DISINTEGRATING TAB 5MG PO PRN ×2 (11:18→15:46)
[2020-01-04 16:26] VITALS: BP 117/71
[2020-01-04] MEDS: ARIPiprazole 10 MG TAB PO SCH (21:09)
[2020-01-05 06:16] VITALS: BP 133/65
[2020-01-05] MEDS: CEPHALEXIN 500 MG CAP PO SCH ×3 (08:40→20:07)
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
[2020-01-05] MEDS: OLANZapine ORAL DISINTEGRATING TAB 5MG PO PRN ×2 (10:57→20:07)
[2020-01-05 15:14] VITALS: BP 128/79
[2020-01-05] MEDS: ARIPiprazole 10 MG TAB PO SCH (20:07)
[2020-01-06 06:08] VITALS: BP 137/83
[2020-01-06] MEDS: CEPHALEXIN 500 MG CAP PO SCH ×3 (08:11→20:08)
[2020-01-06] MEDS: hydrOXYzine 25 MG TAB PO PRN (13:50)
[2020-01-06 17:48] VITALS: BP 123/63
[2020-01-06] MEDS: ARIPiprazole 10 MG TAB PO SCH (20:08)
[2020-01-06] MEDS: traZODone 50 MG TAB PO PRN (20:08)
[2020-01-06] MEDS: OLANZapine ORAL DISINTEGRATING TAB 5MG PO PRN (20:56)
[2020-01-07 06:00] VITALS: BP 116/70
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
[2020-01-07] MEDS: NICOTINE POLACRILEX 2 MG GUM MT PRN (08:49)
[2020-01-07] MEDS: CEPHALEXIN 500 MG CAP PO SCH ×3 (08:49→20:04)
[2020-01-07 18:00] VITALS: BP 128/88
[2020-01-07] MEDS: ARIPiprazole 10 MG TAB PO SCH (20:04)
[2020-01-07] MEDS: traZODone 50 MG TAB PO PRN (20:04)
[2020-01-08 05:39] VITALS: BP 141/69
[2020-01-08] MEDS: CEPHALEXIN 500 MG CAP PO SCH ×4 (08:40→21:23)
--- NOTE | 2020-01-08 09:41 | MHIPNPDOC ---
[facility] Progress Note Progress Note DATE OF SERVICE: 01/08/20 HISTORY: . VITAL SIGNS: See below. NEW TEST RESULTS: . CURRENT MEDICATIONS: See below. MENTAL STATUS EXAMINATION: Patient is a -year old male, who is . Speech: Is . Language skills are . Thought processes including: . Thought content: . Abstract reasoning, and computation: . Description of associ ations: . Description of abnormal or psychotic thoughts: . Judgment: . Insight: [very limited, good, fair. poor]. Orientation: . Recent and remote memory: . Attention span and concentration: . Language: . Fund of knowledge: . Mood: . Affect: . DIAGNOSES: 1. . 2. . 3. . ASSESSMENT: MANAGEMENT PLAN: . TIME SPENT: minutes. Vital Signs Vital Signs Date Time Temp Pulse Resp B/P (MAP) Pulse Ox O2 Delivery O2 Flow Rate FiO2 01/08/20 05:39 98.3 75 18 141/69 (93) 01/05/20 10:18 Room Air 01/04/20 16:26 100 Current Medications Current Medications Medications (Trade) Dose Ordered Sig/Dakota Route PRN Reason Start Time Stop Time Status Last Admin Dose Admin Acetaminophen (Tylenol Tab) 650 mg Q6HP PRN PO HEADACHE or DISCOMFORT 01/01/20 12:30 Al Hydrox/Mg Hydrox/Simethicone (Mylanta) 30 ml Q4HP PRN PO HEARTBURN/INDIGESTION 01/01/20 12:30 Aripiprazole (AbiLIFY) 5 mg QHS PO 01/02/20 21:00 01/03/20 09:31 DC 01/02/20 20:10 Aripiprazole (AbiLIFY) 10 mg QHS PO 01/03/20 21:00 01/07/20 20:04 Bupropion HCl (Wellbutrin Xl) 300 mg DAILY PO 01/02/20 09:00 01/01/20 14:30 DC Cephalexin Monohydrate (Keflex) 500 mg Q12H PO 01/02/20 15:45 01/02/20 15:49 DC Cephalexin Monohydrate (Keflex) 500 mg TID PO 01/01/20 16:00 01/11/20 15:59 01/08/20 08:40 Diphenhydramine HCl (Benadryl) 25 mg Q6HP PRN PO ANXIETY/AGITATION 01/01/20 12:30 Fluoxetine HCl (PROzac) 30 mg DAILY PO 01/02/20 09:00 01/01/20 14:30 DC Home Med (Med Rec Complete!) ASDIRECTED XX 01/01/20 06:45 01/01/20 06:48 DC Hydroxyzine HCl (Atarax) 25 mg Q4H PRN PO ANXIETY/AGITATION 01/01/20 12:30 01/06/20 13:50 Ibuprofen (Advil) 400 mg Q6HP PRN PO PAIN 01/01/20 12:30 Magnesium Hydroxide (Milk Of Magnesia) 30 ml DAILYPRN PRN PO CONSTIPATION 01/01/20 12:30 Nicotine (Nicorette) 2 mg Q2HP PRN MT SMOKING CESSATION 01/01/20 12:30 01/07/20 08:49 Olanzapine (ZyPREXA ZYDIS) 5 mg Q4HP PRN PO AGITATION 01/01/20 12:30 01/06/20 20:56 Trazodone HCl (Desyrel) 50 mg QHSP PRN PO INSOMNIA 01/01/20 12:30 01/07/20 20:04 Allergies Coded Allergies: No Known Allergies (Unverified , 04/28/19) ADILSON EASON DO Jan 08, 2020 09:41
[2020-01-08] MEDS: hydrOXYzine 25 MG TAB PO PRN (11:41)
[2020-01-08] MEDS ORDERED: ARIPiprazole MONOHYDRATE 400 MG INJ (ABILIFY)(J0401) IM ONE (13:00)
[2020-01-08] MEDS: traZODone 50 MG TAB PO PRN (20:08)
[2020-01-09] MEDS ORDERED: CEPH500C PO (00:49)
[2020-01-09] MEDS ORDERED: ABIL1TAB11 PO (00:49)
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
== END 2020-01-09 03:57 | disposition home or self-care (01) | DRG 881 ==
LOC: M ED 06:06 → M ED INP 12:29 → M PSY 14:02
PROVIDERS: ADMIT Psychiatry & Neurology Addiction Medicine; ATTEND Psychiatry & Neurology Addiction Medicine
DX: F32.9 Major depressive disorder, single episode, unspecified (principal); F60.89 Other specific personality disorders; F60.3 Borderline personality disorder; S51.812A Laceration without foreign body of left forearm, initial encounter; X78.1XXA Intentional self-harm by knife, initial encounter; Y92.139 Unspecified place military base as the place of occurrence of the external cause; Z79.899 Other long term (current) drug therapy

== ENCOUNTER 2020-03-21 17:37 | Emergency (ER) | payer OTHER ==
[~2020-03-21] VITALS: Ht 188 cm; Wt 84.1 kg
[~2020-03-21 17:37] MED LIST changes: +ABIL1TAB11 PO; +CEPH500C PO; +NICO2GUM MT; +WELLTAB38 PO
[2020-03-21] MEDS ORDERED: FLUO10CA15 (17:46)
[2020-03-21] MEDS ORDERED: ABIL1INJ IM (17:46)
[2020-03-21] MEDS ORDERED: HYDR-3363 (17:46)
[2020-03-21] MEDS ORDERED: cefTRIAXone SOD 250MG VIAL (J0696 PER 250MG) IM ONE (19:15)
[2020-03-21] MEDS ORDERED: AZITHROMYCIN 250MG TABLET PO ONE (19:15)
[2020-03-21] MEDS ORDERED: LIDOCAINE 1% SDV 5ML VIAL DILUENT ONE (19:15)
[2020-03-21 19:29] VITALS: BP 119/80
[2020-03-21 19:33] LABS: CHLAMYDIA DNA AMPLIFICATION NEGATIVE (NEGATIVE); GC DNA AMPLIFICATION POSITIVE (NEGATIVE)
--- NOTE | 2020-03-21 22:57 | ECGEPIP ---
[facility] - ED Test Date: 2020-03-21 Pat Name: HUMA GUTIERREZ Department: Room: - Gender: Male Agency Legal Counsel: [place] : 2000 Requested By: DENTON Celis PA-C Order Number: [id number] Reading MD: Stef Abraham Measurements Intervals [place] Rate: 77 P: 75 MO: 162 QRS: 70 QRSD: 104 T: 51 QT: 361 QTc: 410 Interpretive Statements SINUS RHYTHM WITH SINUS ARRHYTHMIA NO PRIORS FOR COMPARISON Electronically Signed on 03-21-2020 22:57:03 EDT by Stef Abraham
[2020-03-26 07:40] LABS: HSV-1 DNA Negative (Negative); HSV-2 DNA Negative (Negative)
== END 2020-03-21 19:33 | disposition home or self-care (01) ==
LOC: M ED 17:37
DX: N48.29 Other inflammatory disorders of penis (principal); Z20.2 Contact with and (suspected) exposure to infections with a predominantly sexual mode of transmission; R36.9 Urethral discharge, unspecified; F17.218 Nicotine dependence, cigarettes, with other nicotine-induced disorders
CPT/HCPCS: 81001; 86780; 87086; 87529; 87661; 93005; 96372; 99284; J0696

== ENCOUNTER 2020-06-30 17:06 | Inpatient (IN) | payer OTHER ==
[~2020-06-30 17:06] MED LIST changes: +ABIL1INJ IM; -FLUO10CA15 PO; +FLUO10CA16; +FLUO10CA16 PO; +HYDR-3363
[2020-07-01] MEDS ORDERED: NICOTINE 21MG/24HR 1 EA TRANSDERMAL As Ordered ONE (10:45)
[2020-07-01] MEDS ORDERED: hydrOXYzine 50 MG TAB As Ordered ONE (10:45)
[2020-07-01] MEDS ORDERED: NICOTINE 21MG/24HR 1 EA TRANSDERMAL ONE (10:45)
[2020-07-01] MEDS ORDERED: hydrOXYzine 50 MG TAB ONE (10:45)
[2020-07-01] MEDS ORDERED: traZODone 50 MG TAB As Ordered ONE (20:51)
[2020-07-01] MEDS ORDERED: traZODone 50 MG TAB ONE (20:51)
[2020-07-02] MEDS ORDERED: NICOTINE 21MG/24HR 1 EA TRANSDERMAL As Ordered ONE (14:24)
[2020-07-02] MEDS ORDERED: NICOTINE 21MG/24HR 1 EA TRANSDERMAL ONE (14:24)
[2020-07-02] MEDS ORDERED: traZODone 50 MG TAB As Ordered ONE (20:35)
[2020-07-02] MEDS ORDERED: traZODone 50 MG TAB ONE (20:35)
[2020-07-03] MEDS ORDERED: NICOTINE 21MG/24HR 1 EA TRANSDERMAL ONE (08:25)
[2020-07-03] MEDS ORDERED: NICOTINE 21MG/24HR 1 EA TRANSDERMAL As Ordered ONE (08:25)
[2020-07-03] MEDS ORDERED: hydrOXYzine 25 MG TAB As Ordered ONE (15:42)
[2020-07-03] MEDS ORDERED: hydrOXYzine 25 MG TAB ONE (15:42)
[2020-07-03] MEDS ORDERED: traZODone 50 MG TAB As Ordered ONE (20:18)
[2020-07-03] MEDS ORDERED: traZODone 50 MG TAB ONE (20:18)
[2020-07-04] MEDS ORDERED: NICOTINE 21MG/24HR 1 EA TRANSDERMAL As Ordered ONE (08:18)
[2020-07-04] MEDS ORDERED: hydrOXYzine 25 MG TAB ONE (08:18)
[2020-07-04] MEDS ORDERED: NICOTINE 21MG/24HR 1 EA TRANSDERMAL ONE (08:18)
[2020-07-04] MEDS ORDERED: hydrOXYzine 25 MG TAB As Ordered ONE (10:18)
[2020-07-30 20:15] LABS: BASO % 0.8 % (0.0-1.0); EOS # 0.1 10^3/uL (0.0-0.5); EOS % 2.6 % (0.0-3.0); HEMATOCRIT 46.2 % (42.0-52.0); HEMOGLOBIN 15.6 g/dl (13.5-17.5); LYMPH # 1.6 10^3/uL (1.5-5.0); LYMPH % 31.4 % (24.0-44.0); MEAN CORPUSCULAR HEMOGLOBIN 28.2 pg (27.0-33.0); MEAN CORPUSCULAR HGB CONC 33.8 g/dl (32.0-36.5); MEAN CORPUSCULAR VOLUME 83.5 fl (80.0-96.0); MONO # 0.6 10^3/uL (0.0-0.8); MONO % 12.5 % (0.0-5.0); NEUTROPHILS # 2.7 10^3/uL (1.5-8.5); NEUTROPHILS % 52.3 % (36.0-66.0); PLATELET COUNT, AUTOMATED 178 10^3/uL (150-450); RED BLOOD COUNT 5.53 10^6/uL (4.30-6.10); WHITE BLOOD COUNT 5.1 10^3/uL (4.0-10.0)
[2020-08-12 10:01] LABS: ACETAMINOPHEN LEVEL < 2.0 UG/ML (10.0-30.0); ALBUMIN 4.1 GM/DL (3.2-5.2); ALT/SGPT 16 U/L (12-78); AMPHETAMINES LEVEL URINE NEGATIVE (NEGATIVE); BARBITURATES URINE NEGATIVE (NEGATIVE); BENZODIAZEPINES URINE NEGATIVE (NEGATIVE); BILIRUBIN,DIRECT 0.2 MG/DL (0.0-0.2); BILIRUBIN,TOTAL 0.5 MG/DL (0.2-1.0); BLOOD UREA NITROGEN 14 MG/DL (7-18); CALCIUM LEVEL 9.2 MG/DL (8.5-10.1); CANNABINOIDS URINE NEGATIVE (NEGATIVE); CARBON DIOXIDE LEVEL 29 MEQ/L (21-32); CHLORIDE LEVEL 108 MEQ/L (98-107); COCAINE METABOLITE URINE NEGATIVE (NEGATIVE); CREATININE FOR GFR 1.56 MG/DL (0.70-1.30); ETHYL ALCOHOL (ETHANOL) < 0.003 % (0.000-0.010); FREE T4 1.07 NG/DL (0.76-1.46); GLOMERULAR FILTRATION RATE 59.5 (>60); GLUCOSE, FASTING 92 MG/DL (70-100); METHADONE URINE NEGATIVE (NEGATIVE); OPIATES URINE NEGATIVE (NEGATIVE); PHENCYCLIDINE URINE NEGATIVE (NEGATIVE); POTASSIUM SERUM 4.1 MEQ/L (3.5-5.1); SALICYLATE LEVEL < 1.7 MG/DL (5.0-30.0); SODIUM LEVEL 142 MEQ/L (136-145); TOTAL PROTEIN 7.2 GM/DL (6.4-8.2)
--- NOTE | 2020-08-29 14:02 | MHDS ---
PSYCHIATRIC DATE OF ADMISSION: 06/30/2020 DATE OF DISCHARGE: 07/04/2020 DISCHARGE PROVIDER: SANJUANA Bentley PATIENT DIAGNOSES: 1. Borderline personality disorder. 2. Stimulant-induced depressive disorder. DISCHARGE MEDICATIONS: - Abilify Maintena 400 mg intramuscular. Next dose is due 07/29/2020. - Patient has hydroxyzine 25 mg oral every 6 hours as needed for anxiety. No prescription was sent for this medication. Patient has this at home. - He also has trazodone 50 mg at bedtime. Again, patient has this prescription at home, and he does not need a refill. DISPOSITION: Discharged to home. His family is aware that he is being discharged. ACTIVITY: As tolerated. DIET: Regular. FOLLOWUP CARE: Patient is following up with [facility] in [facility]. CONSULTATIONS: Please see patient's history and physical assessment by the hospitalist on his admission date. Labs and vital signs are noted. Patient was appropriate and cooperative in the milieu and cooperated with treatment plan. He is requesting discharge. 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 He was brought in by [facility] personnel after making a suicidal statement to cut himself with a razor. Patient was reporting that he has a history of bipolar symptoms that have vacillated from manic symptoms and depression. He reports six other psychiatric admissions in [place] and at t his facility. He says he has been diagnosed bipolar. According to [facility] personnel, patient has never been diagnosed with bipolar, and they have him diagnosed as borderline personality disorder. Patient also has an upcoming court date on July 08, for charges of obstruction of justice and possession of substances. Patient reported that he is very nervous about that date, and he has been unable to reach is appeals analyst. He asked his mother to text the appeals analyst yesterday, and he has not received any information about whether or not he has representation at his court date. COURSE OF TREATMENT: Patient as prescribed his medication and given Abilify Maintena 400 mg on July 01. Next dose is due July 29. While hospitalized, patient reported manic symptoms. He was not observed manic. He then reported depressive symptoms. Again, he was not observed with any depressive symptoms. Several times he asked for mood stabilizers. It was reinforced that there had been no reports by staff to initiate any medications for symptoms that are not present. Patient appeared that he was seeking medications. While he did not strongly demand these medications, he did, however, use most of his individual therapy with this provider to rationalize his need for medications. There have been no further changes to his medications regimen. I did reinforce with the patient that his substance use of cocaine, methamphetamine, alcohol, and cannabis use will mirror bipolar symptoms or exacerbate them. I recommended that the patient seek substance abuse treatment as outpatient services. At this time, patient is reporting no suicidal ideation, no homicidal ideation. He reports depression and anxiety about his court date but appears quite disingenuous when he reports this. Patient is discharged to home. CONDITION AT TIME OF DISCHARGE: He is psychiatrically stable. 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 He appears his stated age. He was brought in by [facility] personnel and making suicidal statements to cut himself with a razor. He is calm and cooperative, alert and oriented times four to person, place, time, and situation. He has a flat affect. His mood is euthymic. Thought process is reality based, linear, and goal oriented. He denies and is not observed with auditory or visual hallucinations, delusions, paranoia, psychosis. He reports manic symptoms, but he has not been observed with these symptoms. He also reports some depression, but he has not been observed with depressive symptoms. He denies suicidal or homicidal ideation, planning, or intent. His cognition and intellectual functioning are congruent with his education. His memory is intact, and his insight and judgment are fair. STORMY
== END 2020-07-04 13:30 | disposition home or self-care (01) | DRG 883 ==
LOC: M ED 17:06 → M PSY 19:30
PROVIDERS: ADMIT Psychiatry & Neurology Psychiatry; ATTEND Psychiatry & Neurology Psychiatry
DX: F60.3 Borderline personality disorder (principal); F15.90 Other stimulant use, unspecified, uncomplicated; F19.94 Other psychoactive substance use, unspecified with psychoactive substance-induced mood disorder

== ENCOUNTER 2020-08-01 10:18 | Emergency (ER) | payer OTHER ==
[~2020-08-01] VITALS: Ht 188 cm; Wt 81.0 kg
[2020-08-01 11:05] LABS: HEMATOCRIT 48.6 % (42.0-52.0); HEMOGLOBIN 16.4 g/dl (13.5-17.5); MEAN CORPUSCULAR HEMOGLOBIN 28.5 pg (27.0-33.0); MEAN CORPUSCULAR HGB CONC 33.7 g/dl (32.0-36.5); MEAN CORPUSCULAR VOLUME 84.4 fl (80.0-96.0); PLATELET COUNT, AUTOMATED 162 10^3/uL (150-450); RED BLOOD COUNT 5.76 10^6/uL (4.30-6.10); WHITE BLOOD COUNT 6.9 10^3/uL (4.0-10.0)
[2020-08-01 11:31] LABS: AMPHETAMINES LEVEL URINE NEGATIVE (NEGATIVE); BARBITURATES URINE NEGATIVE (NEGATIVE); BENZODIAZEPINES URINE NEGATIVE (NEGATIVE); CANNABINOIDS URINE POSITIVE (NEGATIVE); COCAINE METABOLITE URINE NEGATIVE (NEGATIVE); METHADONE URINE NEGATIVE (NEGATIVE); OPIATES URINE NEGATIVE (NEGATIVE); PHENCYCLIDINE URINE NEGATIVE (NEGATIVE)
[2020-08-01 11:37] LABS: ACETAMINOPHEN LEVEL < 2.0 UG/ML (10.0-30.0); ALBUMIN 4.5 GM/DL (3.2-5.2); ALT/SGPT 18 U/L (12-78); BILIRUBIN,DIRECT 0.2 MG/DL (0.0-0.2); BILIRUBIN,TOTAL 0.8 MG/DL (0.2-1.0); BLOOD UREA NITROGEN 13 MG/DL (7-18); CALCIUM LEVEL 9.3 MG/DL (8.5-10.1); CARBON DIOXIDE LEVEL 31 MEQ/L (21-32); CHLORIDE LEVEL 106 MEQ/L (98-107); CREATININE FOR GFR 1.22 MG/DL (0.70-1.30); ETHYL ALCOHOL (ETHANOL) < 0.003 % (0.000-0.010); GLOMERULAR FILTRATION RATE > 60.0 (>60); GLUCOSE, FASTING 85 MG/DL (70-100); POTASSIUM SERUM 4.1 MEQ/L (3.5-5.1); SALICYLATE LEVEL < 1.7 MG/DL (5.0-30.0); SODIUM LEVEL 142 MEQ/L (136-145); TOTAL PROTEIN 7.6 GM/DL (6.4-8.2)
[2020-08-02 08:29] VITALS: BP 104/67
--- NOTE | 2020-08-06 20:48 | ECGEPIP ---
[facility] - ED Test Date: 2020-08-01 Pat Name: HUMA GUTIERREZ Department: Room: - Gender: Male Publicity Director: april : 2000 Requested By: Devora Hauser Order Number: [id number] Reading MD: Orville Thurman Measurements Intervals [place] Rate: 66 P: 57 AL: 169 QRS: 67 QRSD: 103 T: 62 QT: 392 QTc: 411 Interpretive Statements SINUS RHYTHM EARLY REPOLARIZATION NO PREVIOUS SEE SCANNED DOWNTIME REPORT
== END 2020-08-02 08:35 ==
LOC: M ED 10:18
DX: F31.9 Bipolar disorder, unspecified (principal); F29 Unspecified psychosis not due to a substance or known physiological condition; R45.851 Suicidal ideations
CPT/HCPCS: 36415; 80048; 80076; 80307; 84443; 85027; 93005; 99284; G0480; U0002